=== PATIENT | female | born 1960 | race Caucasian/White ===

== ENCOUNTER 2021-01-17 09:37 | Outpatient (CLI) | payer OTHER | END 2021-01-17 09:48 | disposition home or self-care (01) | LOC: RX STUDY 09:37 | PROVIDERS: ATTEND Internal Medicine | DX: K22.8 Other specified diseases of esophagus (principal); R13.19 Other dysphagia ==

== ENCOUNTER 2022-09-23 16:49 | Inpatient (IN) | payer OTHER ==
[~2022-09-23] VITALS: Ht 160 cm; Wt 66.7 kg
[2022-09-24] MEDS ORDERED: SYNTHROID100 MCG PO (11:42)
[2022-09-24] MEDS ORDERED: ZOLOFT50 MG PO (11:43)
[2022-09-24] MEDS ORDERED: ATIVAN1 M1 PO (11:43)
[2022-09-24] MEDS ORDERED: CRESTOR10 MG PO (11:43)
[2022-09-24] MEDS ORDERED: DICY20TA PO (11:44)
[2022-09-24] MEDS ORDERED: D3 + K2 DOTS 11 EACH PO (11:44)
[2022-09-30] MEDS ORDERED: LORAZEPAM2 MG (08:18)
[2022-09-30] MEDS ORDERED: RESTORIL15 MG (08:18)
[2022-09-30] MEDS ORDERED: SERTRALINE HCL100 MG (08:18)
[2022-09-30] MEDS ORDERED: LAMICTAL100 MG (08:18)
[2022-09-30] MEDS ORDERED: RISEDRONATE SOD35 MG (08:18)
[2022-09-30] MEDS ORDERED: DICLOFENAC SOD100 MG (08:18)
[2022-09-30] MEDS ORDERED: SERTRALINE HCL50 MG (08:19)
[2022-09-30] MEDS ORDERED: TIZANIDINE HCL4 MG (08:19)
[2022-09-30] MEDS ORDERED: SYNTHROID88 MCG (08:19)
[2022-10-02] MEDS ORDERED: NEURONTIN300 MG PO (08:11)
[2022-10-02] MEDS ORDERED: INTESTINEX680 M1 PO (08:11)
[2022-10-02] MEDS ORDERED: PERCOCET 5-3251 EACH PO (08:11)
== END 2022-10-02 10:47 | disposition home or self-care (01) | DRG 331 ==
LOC: SURG 09-29 09:00 → SURH 09-29 10:09 → O/R 09-29 10:09 → SURG 09-29 10:45 → SURH 09-29 15:56
PROVIDERS: ADMIT Surgery; ATTEND Surgery
PROC: 0DBP4ZZ Excision of Rectum, Percutaneous Endoscopic Approach (ICD-10-PCS; 2022-09-29)
PROC: 0DTN4ZZ Resection of Sigmoid Colon, Percutaneous Endoscopic Approach (ICD-10-PCS; 2022-09-29)
PROC: 0DQ84ZZ Repair Small Intestine, Percutaneous Endoscopic Approach (ICD-10-PCS; principal; 2022-09-29 10:45)
DX: K56.51 Intestinal adhesions [bands], with partial obstruction (principal); K63.4 Enteroptosis; K56.41 Fecal impaction; F41.9 Anxiety disorder, unspecified; N73.6 Female pelvic peritoneal adhesions (postinfective); N99.4 Postprocedural pelvic peritoneal adhesions; E03.9 Hypothyroidism, unspecified; Z20.822 Contact with and (suspected) exposure to COVID-19

== ENCOUNTER 2022-10-06 12:00 | Emergency (ER) | payer OTHER ==
[~2022-10-06] VITALS: Ht 160 cm; Wt 65.8 kg
[~2022-10-06 12:00] MED LIST: ATIVAN1 M1 PO; CRESTOR10 MG PO; D3 + K2 DOTS 11 EACH PO; DICLOFENAC SOD100 MG; DICY20TA PO; INTESTINEX680 M1 PO; LAMICTAL100 MG; LORAZEPAM2 MG; NEURONTIN300 MG PO; PERCOCET 5-3251 EACH PO; RESTORIL15 MG; RISEDRONATE SOD35 MG; SERTRALINE HCL100 MG; SERTRALINE HCL50 MG; SYNTHROID100 MCG PO; SYNTHROID88 MCG; TIZANIDINE HCL4 MG; ZOLOFT50 MG PO
== END 2022-10-06 15:19 | disposition home or self-care (01) ==
LOC: ER 12:00
DX: L98.9 Disorder of the skin and subcutaneous tissue, unspecified (principal); L30.9 Dermatitis, unspecified; I10 Essential (primary) hypertension; E03.8 Other specified hypothyroidism; Z88.2 Allergy status to sulfonamides

== ENCOUNTER 2023-11-18 10:55 | Outpatient (CLI) | payer OTHER | END 2023-11-18 11:00 | disposition home or self-care (01) | LOC: SONOGRAMA 10:55 | PROVIDERS: ATTEND Internal Medicine | DX: M65.842 Other synovitis and tenosynovitis, left hand (principal) ==

== ENCOUNTER 2024-01-18 13:14 | Outpatient (CLI) | payer OTHER | END 2024-01-18 13:15 | disposition home or self-care (01) | LOC: NUCLEAR 13:14 | PROVIDERS: ATTEND Internal Medicine | DX: M81.0 Age-related osteoporosis without current pathological fracture (principal) ==

== ENCOUNTER 2025-02-15 08:49 | Outpatient (CLI) | payer OTHER | END 2025-02-15 08:51 | disposition home or self-care (01) | LOC: SONOGRAMA 08:49 | PROVIDERS: ATTEND Internal Medicine | DX: R10.13 Epigastric pain (principal); R74.8 Abnormal levels of other serum enzymes ==

== ENCOUNTER 2025-04-05 10:32 | Outpatient (CLI) | payer OTHER | END 2025-04-05 10:36 | disposition home or self-care (01) | LOC: MAMO-SONO 10:32 | DX: N60.11 Diffuse cystic mastopathy of right breast (principal); N60.12 Diffuse cystic mastopathy of left breast ==